=== PATIENT | female | born 1970 | race Caucasian/White ===

== ENCOUNTER 2020-09-27 15:30 | Outpatient (CLI) | payer BC, OTHER ==
[2020-08-30 07:03] VITALS: BMI 21.8
[~2020-09-27 15:30] MED LIST: HYDROCODON-ACE1 EAC7 PO
== END 2020-09-27 23:59 | disposition home or self-care (01) ==
LOC: D.MAMMO 15:30
PROVIDERS: ATTEND Obstetrics & Gynecology
DX: Z12.31 Encounter for screening mammogram for malignant neoplasm of breast (principal); Z01.419 Encounter for gynecological examination (general) (routine) without abnormal findings